=== PATIENT | female | born 1950 | race Caucasian/White ===

== ENCOUNTER 2019-02-13 14:51 | Inpatient (IN) | payer MEDICARE, OTHER ==
[~2019-02-13] VITALS: Ht 177.8 cm; Wt 103.2 kg
[~2019-02-13 14:51] MED LIST: ACET-784 PO; AUD NEB; BISA10SU11 PR; DSS100 PO; HEPA500018 SQ; HYDR2I IV; INSNOV SQ; IPRNEB NEB; LR1000 IV; METO25 PO; MOM30 PO; ONDA4 IVP; PANT40TA25 IVP; VANC1IV IV; ZOLP5 PO
[2019-02-13] MEDS ORDERED: SODIUM CHLORIDE 0.9% 1,000 ML IV ONE ×4 (15:12→17:15)
[2019-02-13] MEDS ORDERED: ACETAMINOPHEN 1000 MG/ISO-OSM 100 ML IV ONE ×2 (15:15→20:00)
[2019-02-13 15:35] LABS: BASOPHILS % (AUTO) 0.6 % (0.0-2.0); EOSINOPHILS % (AUTO) 0 % (1.0-6.0); HEMOGLOBIN 15.7 g/dL (12.0-16.0); LYMPHOCYTES # (AUTO) 2.7 K/uL (1.0-4.8); LYMPHOCYTES % (AUTO) 14.2 % (22.0-44.0); MEAN CORPUSCULAR HEMOGLOBIN 29.9 pg (26.0-34.0); MEAN CORPUSCULAR HGB CONC 32.8 G/dL (31.0-37.0); MEAN CORPUSCULAR VOLUME 91 fL (80-100); MONOCYTES # (AUTO) 1.5 K/uL (0.1-1.0); MONOCYTES % (AUTO) 7.8 % (2.0-9.0); NEUTROPHILS # (AUTO) 14.7 K/uL (1.8-7.7); NEUTROPHILS % (AUTO) 77.4 % (40.0-70.0); PLATELET COUNT (AUTO) 234 K/uL (150-450); RED BLOOD CELL COUNT(AUTO) 5.26 MIL/uL (4.00-5.20); RED CELL DISTRIBUTION WIDTH 13.9 % (11.5-14.5)
[2019-02-13 15:46] LABS: APPEARANCE,URINE CLOUDY (CLEAR); BILIRUBIN,URINE NEGATIVE (NEGATIVE); GLUCOSE, URINE (UA) 100 mg/dL (NEGATIVE); KETONES,URINE 15 mg/dL (NEGATIVE); LEUKOCYTE ESTERASE ,URINE MODERATE (NEGATIVE); NITRATE,URINE NEGATIVE (NEGATIVE); OCCULT BLOOD,URINE MODERATE (NEGATIVE); PH,URINE 5.5 (5.0-8.0); PROTEIN,URINE SEE CONFIRM (NEGATIVE)
[2019-02-13 15:48] LABS: INR 1.1 (0.9-1.1); PROTHROMBIN TIME 11.6 SEC (9.4-11.6)
[2019-02-13 15:58] LABS: LACTIC ACID 3.8 mmol/L (0.4-2.0)
[2019-02-13] MEDS ORDERED: CefTRIAXone 1 GM/DEXTROSE 50 ML IV ONE (16:00)
[2019-02-13 16:01] LABS: BACTERIA,URINE Many /HPF (None Seen); SQUAMOUS EPITHELIAL CELL,UR Few /LPF (None Seen); SULFOSALICYLIC ACID,URINE 3+ (Negative); WBC,URINE 26-50 /HPF (0-5)
[2019-02-13 16:07] LABS: ALANINE AMINOTRANSFERASE 20 U/L (12-78); ALBUMIN 3.1 g/dL (3.4-5.0); ALKALINE PHOSPHATASE 79 U/L (46-116); ANION GAP 13 mmol/L (8-16); ASPARTATE AMINOTRANSFERASE 34 U/L (15-37); BILIRUBIN,TOTAL 1.9 mg/dL (0.1-1.0); CALCIUM, TOTAL 8.8 mg/dL (8.8-10.5); CARBON DIOXIDE 26 mmol/L (22-29); CHLORIDE 89 mmol/L (98-107); CREATINE KINASE, TOTAL ONLY 122 U/L (26-192); CREATININE 1.96 mg/dL (0.60-1.30); GLOMERULAR FILTR. RATE CALC 26 mL/min (>60); GLUCOSE,RANDOM 315 mg/dL (70-110); SODIUM SERUM 128 mmol/L (136-145); TOTAL PROTEIN, SERUM 7.7 g/dL (6.4-8.2); UREA NITROGEN, BLOOD 19 mg/dL (7-18)
[2019-02-13 16:10] LABS: POTASSIUM 2.9 mmol/L (3.5-5.1)
[2019-02-13] MEDS ORDERED: POTASSIUM CHL 10 MEQ/WATER 50 ML IV ONE (16:15)
[2019-02-13] MEDS ORDERED: ONDANSETRON HCL 4 MG/2 ML VIAL IVP PRN (16:30)
[2019-02-13] MEDS ORDERED: HYDROCODONE/ACETAMINOPHEN 5-325 MG TABLET PO PRN (16:30)
[2019-02-13] MEDS ORDERED: ZOLPIDEM TARTRATE 5 MG TABLET PO PRN (16:30)
[2019-02-13] MEDS ORDERED: MORPHINE SULFATE 2 MG/ML SYRINGE IVP PRN (16:30)
[2019-02-13] MEDS ORDERED: BISACODYL 10 MG RECTAL RECTAL SUPPOSITORY PR PRN (16:30)
[2019-02-13] MEDS ORDERED: MAGNESIUM HYDROXIDE SUSPENSION 30 ML UDCUP PO PRN (16:30)
[2019-02-13 16:59] LABS: INFLUENZA TYPE A NEGATIVE FOR TYPE A (NEGATIVE); INFLUENZA TYPE B NEGATIVE FOR TYPE B (NEGATIVE)
[2019-02-13] MEDS: POTASSIUM CHL 10 MEQ/WATER 50 ML IV SCH ×4 (17:36→21:36)
[2019-02-13 19:08] LABS: CALCIUM, TOTAL 8.3 mg/dL (8.8-10.5); CREATININE 1.54 mg/dL (0.60-1.30); POTASSIUM 3.1 mmol/L (3.5-5.1)
[2019-02-13 19:15] LABS: ALBUMIN 2.9 g/dL (3.4-5.0); BILIRUBIN,TOTAL 1.6 mg/dL (0.1-1.0); MAGNESIUM 1.7 mg/dL (1.80-2.40); PHOSPHORUS 2.2 mg/dL (2.5-4.9); TOTAL PROTEIN, SERUM 7.4 g/dL (6.4-8.2)
[2019-02-13 19:34] LABS: GLUCOSE,POINT OF CARE 317 MG/DL (70-110)
[2019-02-13] MEDS ORDERED: *CLINICAL-LEVOFLOXACIN IVPB DOSING CLINICAL ONE (20:45)
[2019-02-13 21:00] VITALS: BP 122/72
[2019-02-13] MEDS: DOCUSATE SODIUM 100 MG CAPSULE PO SCH (21:00)
[2019-02-13] MEDS ORDERED: METOPROLOL TARTRATE 25 MG TABLET PO SCH (21:00)
[2019-02-13] MEDS ORDERED: ACETAMINOPHEN 650 MG RECTAL SUPPOSITORY PR PRN (21:30)
[2019-02-13] MEDS ORDERED: DEXTROSE 50%-WATER 25 GM/50 ML SYRINGE IVP PRN (22:15)
[2019-02-13] MEDS: LEVOFLOXACIN 750 MG/D5% WATER 150 ML IV SCH (22:52)
[2019-02-13] MEDS: INSULIN LISPRO 100 UNITS/ML SQ PRN (23:30)
[2019-02-13] MEDS: HEPARIN SODIUM,PORCINE 5,000 UNITS/ML VIAL SQ SCH (23:36)
[2019-02-13 23:54] LABS: GLUCOSE,POINT OF CARE 335 MG/DL (70-110)
[2019-02-14] VITALS (9 sets, daily range): BP systolic 106–140; BP diastolic 51–86
[2019-02-14 01:54] LABS: CREATININE,URINE RANDOM 113.5 mg/dL (30.0-125.0)
[2019-02-14] MEDS: INSULIN LISPRO 100 UNITS/ML SQ PRN ×2 (06:14→19:54)
[2019-02-14 06:18] LABS: BASOPHILS % (AUTO) 0.5 % (0.0-2.0); EOSINOPHILS % (AUTO) 0.1 % (1.0-6.0); HEMATOCRIT 45.3 % (36-46); LYMPHOCYTES # (AUTO) 3.5 K/uL (1.0-4.8); LYMPHOCYTES % (AUTO) 18.9 % (22.0-44.0); MEAN CORPUSCULAR HEMOGLOBIN 30.4 pg (26.0-34.0); MEAN CORPUSCULAR HGB CONC 33.2 G/dL (31.0-37.0); MEAN CORPUSCULAR VOLUME 92 fL (80-100); MONOCYTES # (AUTO) 1.8 K/uL (0.1-1.0); MONOCYTES % (AUTO) 9.6 % (2.0-9.0); NEUTROPHILS # (AUTO) 13.2 K/uL (1.8-7.7); NEUTROPHILS % (AUTO) 70.9 % (40.0-70.0); PLATELET COUNT (AUTO) 169 K/uL (150-450); RED BLOOD CELL COUNT(AUTO) 4.93 MIL/uL (4.00-5.20); RED CELL DISTRIBUTION WIDTH 14.2 % (11.5-14.5)
[2019-02-14 06:32] LABS: ALBUMIN 2.7 g/dL (3.4-5.0); BILIRUBIN,TOTAL 0.9 mg/dL (0.1-1.0); CALCIUM, TOTAL 7.9 mg/dL (8.8-10.5); CREATININE 1.44 mg/dL (0.60-1.30); TOTAL PROTEIN, SERUM 6.9 g/dL (6.4-8.2)
[2019-02-14 07:04] LABS: GLUCOSE,POINT OF CARE 298 MG/DL (70-110)
[2019-02-14] MEDS ORDERED: DIGOXIN 250 MCG/ML 2 ML AMP IVP ONE (07:45)
[2019-02-14] MEDS: HEPARIN SODIUM,PORCINE 5,000 UNITS/ML VIAL SQ SCH ×2 (08:24→16:29)
[2019-02-14 08:45] LABS: MAGNESIUM 1.8 mg/dL (1.80-2.40)
[2019-02-14] MEDS: APIXABAN 5 MG TABLET PO SCH ×2 (09:08→21:14)
[2019-02-14] MEDS: PANTOPRAZOLE SODIUM 40 MG DR TABLET PO SCH (09:08)
[2019-02-14] MEDS: DOCUSATE SODIUM 100 MG CAPSULE PO SCH ×2 (09:08→21:14)
[2019-02-14] MEDS: ACETAMINOPHEN 325 MG TABLET PO PRN (09:09)
[2019-02-14] MEDS ORDERED: MAGNESIUM OXIDE 400 MG TABLET PO PRN (09:30)
[2019-02-14] MEDS ORDERED: MAGNESIUM SULFATE 2 GM/WATER 50 ML IV PRN (09:30)
[2019-02-14] MEDS ORDERED: POTASSIUM CHLORIDE 20 MEQ ER TABLET PO PRN (09:30)
[2019-02-14] MEDS ORDERED: MAGNESIUM SULFATE 4 GM/WATER 100 ML IV PRN (09:30)
[2019-02-14] MEDS: SODIUM CHLORIDE 0.9% 1,000 ML IV SCH ×2 (10:36→19:42)
[2019-02-14] MEDS: POTASSIUM CHL 10 MEQ/WATER 50 ML IV PRN ×4 (10:40→14:20)
[2019-02-14] MEDS ORDERED: SODIUM CHLORIDE 0.9% 250 ML IV ONE (11:36)
[2019-02-14] MEDS: DIGOXIN 250 MCG/ML 2 ML AMP IVP ONE ×2 (15:15→15:26)
[2019-02-14] MEDS ORDERED: AMIODARONE HCL 150 MG in DEXTROSE 5%-WATER 97 ML IV ONE (15:35)
[2019-02-14] MEDS ORDERED: AMIODARONE HCL 360 MG in DEXTROSE 5%-WATER 242.8 ML IV ONE (15:45)
[2019-02-14] MEDS: CefTRIAXone 1 GM/DEXTROSE 50 ML IV SCH (16:21)
[2019-02-14] MEDS: METOPROLOL TARTRATE 25 MG TABLET PO SCH (16:29)
[2019-02-14] MEDS ORDERED: AMIODARONE HCL 540 MG in DEXTROSE 5%-WATER 239.2 ML IV ONE (18:45)
[2019-02-14 20:05] LABS: GLUCOSE,POINT OF CARE 269 MG/DL (70-110)
[2019-02-14] MEDS: INSULIN GLARGINE,HUM.REC.ANLOG 100 UNITS/ML SQ SCH (21:42)
[2019-02-14] MEDS: LEVOFLOXACIN 750 MG/D5% WATER 150 ML IV SCH (21:43)
[2019-02-15] VITALS: BP 134/81
[2019-02-15] MEDS: INSULIN LISPRO 100 UNITS/ML SQ PRN ×4 (00:27→22:07)
[2019-02-15] MEDS: HEPARIN SODIUM,PORCINE 5,000 UNITS/ML VIAL SQ SCH ×3 (00:31→16:00)
[2019-02-15] MEDS: METOPROLOL TARTRATE 25 MG TABLET PO SCH ×4 (00:31→17:32)
[2019-02-15 04:00] VITALS: BP 142/93
[2019-02-15 05:19] LABS: BASOPHILS % (AUTO) 0.4 % (0.0-2.0); EOSINOPHILS % (AUTO) 0.7 % (1.0-6.0); HEMATOCRIT 38.6 % (36-46); HEMOGLOBIN 12.7 g/dL (12.0-16.0); LYMPHOCYTES # (AUTO) 2.4 K/uL (1.0-4.8); LYMPHOCYTES % (AUTO) 21.3 % (22.0-44.0); MEAN CORPUSCULAR VOLUME 91 fL (80-100); MONOCYTES # (AUTO) 0.9 K/uL (0.1-1.0); MONOCYTES % (AUTO) 8.3 % (2.0-9.0); NEUTROPHILS # (AUTO) 7.7 K/uL (1.8-7.7); NEUTROPHILS % (AUTO) 69.3 % (40.0-70.0); PLATELET COUNT (AUTO) 135 K/uL (150-450); RED BLOOD CELL COUNT(AUTO) 4.24 MIL/uL (4.00-5.20); RED CELL DISTRIBUTION WIDTH 13.8 % (11.5-14.5)
[2019-02-15 05:29] LABS: ALBUMIN 2.4 g/dL (3.4-5.0); BILIRUBIN,TOTAL 0.6 mg/dL (0.1-1.0); CALCIUM, TOTAL 7.9 mg/dL (8.8-10.5); CREATININE 0.97 mg/dL (0.60-1.30); MAGNESIUM 1.7 mg/dL (1.80-2.40); POTASSIUM 3.1 mmol/L (3.5-5.1); TOTAL PROTEIN, SERUM 5.6 g/dL (6.4-8.2)
[2019-02-15] MEDS: SODIUM CHLORIDE 0.9% 1,000 ML IV SCH (06:06)
[2019-02-15 08:00] VITALS: BP 134/69
[2019-02-15] MEDS: PANTOPRAZOLE SODIUM 40 MG DR TABLET PO SCH (08:01)
[2019-02-15] MEDS: DIGOXIN 250 MCG/ML 2 ML AMP IVP SCH ×2 (08:01→12:13)
[2019-02-15] MEDS: APIXABAN 5 MG TABLET PO SCH ×2 (08:01→21:20)
[2019-02-15] MEDS: DOCUSATE SODIUM 100 MG CAPSULE PO SCH ×2 (08:01→21:00)
[2019-02-15] MEDS: POTASSIUM CHL 10 MEQ/WATER 50 ML IV PRN ×3 (08:51→11:21)
[2019-02-15 09:45] LABS: GLUCOSE,POINT OF CARE 191 MG/DL (70-110)
[2019-02-15 09:45] LABS: GLUCOSE,POINT OF CARE 262 MG/DL (70-110)
[2019-02-15 09:45] LABS: GLUCOSE,POINT OF CARE 241 MG/DL (70-110)
[2019-02-15] MEDS: ACETAMINOPHEN 325 MG TABLET PO PRN (11:44)
[2019-02-15 12:00] VITALS: BP 121/72
[2019-02-15] MEDS ORDERED: SODIUM CHLORIDE 0.9% 250 ML IV ONE (12:20)
[2019-02-15] MEDS ORDERED: SODIUM CHLORIDE 0.9% 1,000 ML IV ONE (13:30)
[2019-02-15] MEDS ORDERED: BARIUM SULFATE 0.1% SUSPENSION 450 ML BOTTLE ONE (14:04)
[2019-02-15] MEDS ORDERED: SODIUM CHLORIDE 0.9% 100 ML ONE (14:04)
[2019-02-15] MEDS ORDERED: IOVERSOL 350 MG/ML 150 ML VIAL ONE (14:04)
[2019-02-15] MEDS: AMIODARONE HCL 750 MG in DEXTROSE 5%-WATER 485 ML IV SCH (15:40)
[2019-02-15 16:00] VITALS: BP 135/73
[2019-02-15] MEDS: CefTRIAXone 1 GM/DEXTROSE 50 ML IV SCH (16:00)
[2019-02-15 17:35] LABS: GLUCOSE,POINT OF CARE 219 MG/DL (70-110)
[2019-02-15 17:35] LABS: GLUCOSE,POINT OF CARE 188 MG/DL (70-110)
[2019-02-15 20:00] VITALS: BP 172/73
[2019-02-15] MEDS: INSULIN GLARGINE,HUM.REC.ANLOG 100 UNITS/ML SQ SCH (21:10)
[2019-02-15] MEDS: LEVOFLOXACIN 750 MG/D5% WATER 150 ML IV SCH (22:08)
[2019-02-15 23:39] LABS: GLUCOSE,POINT OF CARE 211 MG/DL (70-110)
[2019-02-16] VITALS (8 sets, daily range): BP systolic 95–147; BP diastolic 53–70
[2019-02-16] MEDS: HEPARIN SODIUM,PORCINE 5,000 UNITS/ML VIAL SQ SCH ×3 (00:33→15:39)
[2019-02-16] MEDS: METOPROLOL TARTRATE 25 MG TABLET PO SCH ×4 (00:33→18:04)
[2019-02-16 05:24] LABS: BASOPHILS % (AUTO) 0.7 % (0.0-2.0); EOSINOPHILS % (AUTO) 2.2 % (1.0-6.0); HEMATOCRIT 36.3 % (36-46); HEMOGLOBIN 12.1 g/dL (12.0-16.0); LYMPHOCYTES % (AUTO) 22.3 % (22.0-44.0); MEAN CORPUSCULAR HEMOGLOBIN 30.6 pg (26.0-34.0); MEAN CORPUSCULAR HGB CONC 33.4 G/dL (31.0-37.0); MEAN CORPUSCULAR VOLUME 92 fL (80-100); MONOCYTES # (AUTO) 0.8 K/uL (0.1-1.0); MONOCYTES % (AUTO) 8.2 % (2.0-9.0); NEUTROPHILS # (AUTO) 6.1 K/uL (1.8-7.7); NEUTROPHILS % (AUTO) 66.6 % (40.0-70.0); PLATELET COUNT (AUTO) 126 K/uL (150-450); RED BLOOD CELL COUNT(AUTO) 3.97 MIL/uL (4.00-5.20); RED CELL DISTRIBUTION WIDTH 13.8 % (11.5-14.5)
[2019-02-16] MEDS: INSULIN LISPRO 100 UNITS/ML SQ PRN ×4 (06:06→21:05)
[2019-02-16 07:05] LABS: GLUCOSE,POINT OF CARE 157 MG/DL (70-110)
[2019-02-16 07:10] LABS: ALANINE AMINOTRANSFERASE 17 U/L (12-78); ALBUMIN 2.3 g/dL (3.4-5.0); ALKALINE PHOSPHATASE 56 U/L (46-116); ANION GAP 11 mmol/L (8-16); ASPARTATE AMINOTRANSFERASE 30 U/L (15-37); BILIRUBIN,TOTAL 0.5 mg/dL (0.1-1.0); CALCIUM, TOTAL 8.4 mg/dL (8.8-10.5); CARBON DIOXIDE 23 mmol/L (22-29); CHLORIDE 99 mmol/L (98-107); CREATININE 0.89 mg/dL (0.60-1.30); GLOMERULAR FILTR. RATE CALC > 60 mL/min (>60); GLUCOSE,RANDOM 149 mg/dL (70-110); POTASSIUM 3.3 mmol/L (3.5-5.1); SODIUM SERUM 133 mmol/L (136-145); TOTAL PROTEIN, SERUM 6.1 g/dL (6.4-8.2); UREA NITROGEN, BLOOD 11 mg/dL (7-18)
[2019-02-16] MEDS: DOCUSATE SODIUM 100 MG CAPSULE PO SCH ×2 (09:00→20:50)
[2019-02-16] MEDS: APIXABAN 5 MG TABLET PO SCH ×2 (09:01→20:50)
[2019-02-16] MEDS: PANTOPRAZOLE SODIUM 40 MG DR TABLET PO SCH (09:01)
[2019-02-16] MEDS ORDERED: SODIUM CHLORIDE 0.9% 500 ML IV ONE (10:05)
[2019-02-16] MEDS: POTASSIUM CHL 10 MEQ/WATER 50 ML IV PRN ×6 (10:07→22:13)
[2019-02-16 12:02] LABS: POTASSIUM,URINE RANDOM 21 mmol/L (12-75); SODIUM,URINE RANDOM 150 mmol/l (20-110)
[2019-02-16 12:09] LABS: OSMOLALITY,URINE 589 mOS/kg (50-1200)
[2019-02-16 14:39] LABS: GLUCOSE,POINT OF CARE 163 MG/DL (70-110)
[2019-02-16] MEDS: AMIODARONE HCL 750 MG in DEXTROSE 5%-WATER 485 ML IV SCH (15:37)
[2019-02-16] MEDS: CeFAZolin 1 GM/DEXTROSE 50 ML IV SCH (15:38)
[2019-02-16 18:29] LABS: GLUCOSE,POINT OF CARE 201 MG/DL (70-110)
[2019-02-16] MEDS ORDERED: SODIUM CHLORIDE 0.9% 250 ML IV ONE ×2 (19:26→22:26)
[2019-02-16] MEDS: AMIODARONE HCL 200 MG TABLET PO SCH (20:50)
[2019-02-16] MEDS: ACETAMINOPHEN 325 MG TABLET PO PRN (20:51)
[2019-02-16] MEDS: INSULIN GLARGINE,HUM.REC.ANLOG 100 UNITS/ML SQ SCH (21:04)
[2019-02-17] VITALS (7 sets, daily range): BP systolic 121–146; BP diastolic 54–70
[2019-02-17] MEDS: METOPROLOL TARTRATE 25 MG TABLET PO SCH ×4 (00:35→17:52)
[2019-02-17] MEDS: HEPARIN SODIUM,PORCINE 5,000 UNITS/ML VIAL SQ SCH ×3 (00:35→17:10)
[2019-02-17] MEDS: CeFAZolin 1 GM/DEXTROSE 50 ML IV SCH ×3 (00:35→15:36)
[2019-02-17] MEDS ORDERED: SODIUM CHLORIDE 0.9% 250 ML IV ONE (03:02)
[2019-02-17 05:54] LABS: BASOPHILS % (AUTO) 0.5 % (0.0-2.0); HEMATOCRIT 39.1 % (36-46); LYMPHOCYTES # (AUTO) 1.9 K/uL (1.0-4.8); LYMPHOCYTES % (AUTO) 23.4 % (22.0-44.0); MEAN CORPUSCULAR HEMOGLOBIN 30.4 pg (26.0-34.0); MEAN CORPUSCULAR HGB CONC 33.4 G/dL (31.0-37.0); MEAN CORPUSCULAR VOLUME 91 fL (80-100); MONOCYTES # (AUTO) 0.6 K/uL (0.1-1.0); MONOCYTES % (AUTO) 7.4 % (2.0-9.0); NEUTROPHILS # (AUTO) 5.3 K/uL (1.8-7.7); NEUTROPHILS % (AUTO) 66.7 % (40.0-70.0); PLATELET COUNT (AUTO) 135 K/uL (150-450); RED CELL DISTRIBUTION WIDTH 14.1 % (11.5-14.5)
[2019-02-17] MEDS: INSULIN LISPRO 100 UNITS/ML SQ PRN ×3 (05:58→21:31)
[2019-02-17 06:01] LABS: ANION GAP 8 mmol/L (8-16); CALCIUM, TOTAL 8.4 mg/dL (8.8-10.5); CARBON DIOXIDE 24 mmol/L (22-29); CHLORIDE 99 mmol/L (98-107); CREATININE 0.79 mg/dL (0.60-1.30); GLOMERULAR FILTR. RATE CALC > 60 mL/min (>60); GLUCOSE,RANDOM 164 mg/dL (70-110); PHOSPHORUS 3.3 mg/dL (2.5-4.9); POTASSIUM 3.9 mmol/L (3.5-5.1); SODIUM SERUM 131 mmol/L (136-145); UREA NITROGEN, BLOOD 8 mg/dL (7-18)
[2019-02-17 07:05] LABS: GLUCOSE,POINT OF CARE 180 MG/DL (70-110)
[2019-02-17 07:05] LABS: GLUCOSE,POINT OF CARE 213 MG/DL (70-110)
[2019-02-17] MEDS: MULTIVITAMINS WITH MINERALS, THERAPEUTIC TABLET PO SCH (07:55)
[2019-02-17] MEDS: AMIODARONE HCL 200 MG TABLET PO SCH ×2 (07:55→20:14)
[2019-02-17] MEDS: PANTOPRAZOLE SODIUM 40 MG DR TABLET PO SCH (07:55)
[2019-02-17] MEDS: DOCUSATE SODIUM 100 MG CAPSULE PO SCH ×2 (07:55→20:14)
[2019-02-17] MEDS: APIXABAN 5 MG TABLET PO SCH ×2 (08:01→21:30)
[2019-02-17] MEDS ORDERED: FUROSEMIDE 20 MG/2 ML VIAL IVP ONE (10:15)
[2019-02-17 17:48] LABS: ANION GAP 10 mmol/L (8-16); CALCIUM, TOTAL 8.4 mg/dL (8.8-10.5); CARBON DIOXIDE 26 mmol/L (22-29); CHLORIDE 98 mmol/L (98-107); CREATININE 0.89 mg/dL (0.60-1.30); GLOMERULAR FILTR. RATE CALC > 60 mL/min (>60); GLUCOSE,RANDOM 194 mg/dL (70-110); POTASSIUM 3.2 mmol/L (3.5-5.1); SODIUM SERUM 134 mmol/L (136-145); UREA NITROGEN, BLOOD 8 mg/dL (7-18)
[2019-02-17] MEDS ORDERED: POTASSIUM CHLORIDE 10% 40 MEQ/30 ML LIQUID UDCUP PO ONE (18:00)
[2019-02-17] MEDS: INSULIN GLARGINE,HUM.REC.ANLOG 100 UNITS/ML SQ SCH (21:31)
[2019-02-17] MEDS ORDERED: SODIUM CHLORIDE 0.9% 100 ML ONE (22:18)
[2019-02-18] VITALS (7 sets, daily range): BP systolic 116–137; BP diastolic 58–73
[2019-02-18] MEDS: METOPROLOL TARTRATE 25 MG TABLET PO SCH ×4 (00:25→18:12)
[2019-02-18] MEDS: HEPARIN SODIUM,PORCINE 5,000 UNITS/ML VIAL SQ SCH ×3 (00:25→17:08)
[2019-02-18] MEDS: CeFAZolin 1 GM/DEXTROSE 50 ML IV SCH ×3 (00:25→17:08)
[2019-02-18 00:45] LABS: GLUCOMETER DEV NAME(LOC) 5S.1; GLUCOSE,POINT OF CARE 212 MG/DL (70-110)
[2019-02-18 06:00] LABS: GLUCOMETER DEV NAME(LOC) 5N.1; GLUCOSE,POINT OF CARE 203 MG/DL (70-110)
[2019-02-18] MEDS: INSULIN LISPRO 100 UNITS/ML SQ PRN ×4 (06:17→22:02)
[2019-02-18 06:23] LABS: CALCIUM, TOTAL 9.1 mg/dL (8.8-10.5); CREATININE 0.93 mg/dL (0.60-1.30); POTASSIUM 3.8 mmol/L (3.5-5.1)
[2019-02-18 06:55] LABS: GLUCOMETER DEV NAME(LOC) 5N.1; GLUCOSE,POINT OF CARE 186 MG/DL (70-110)
[2019-02-18] MEDS: AMIODARONE HCL 200 MG TABLET PO SCH ×2 (08:00→21:58)
[2019-02-18] MEDS: APIXABAN 5 MG TABLET PO SCH ×2 (08:00→21:58)
[2019-02-18] MEDS: PANTOPRAZOLE SODIUM 40 MG DR TABLET PO SCH (08:00)
[2019-02-18] MEDS: MULTIVITAMINS WITH MINERALS, THERAPEUTIC TABLET PO SCH (08:01)
[2019-02-18] MEDS: DOCUSATE SODIUM 100 MG CAPSULE PO SCH ×2 (08:01→21:58)
[2019-02-18 19:40] LABS: GLUCOMETER DEV NAME(LOC) 5N.1; GLUCOSE,POINT OF CARE 174 MG/DL (70-110)
[2019-02-18 19:40] LABS: GLUCOMETER DEV NAME(LOC) 5S.1; GLUCOSE,POINT OF CARE 213 MG/DL (70-110)
[2019-02-18] MEDS: ACETAMINOPHEN 325 MG TABLET PO PRN (21:17)
[2019-02-18] MEDS: INSULIN GLARGINE,HUM.REC.ANLOG 100 UNITS/ML SQ SCH (22:01)
[2019-02-19 00:20] LABS: GLUCOMETER DEV NAME(LOC) 5N.1; GLUCOSE,POINT OF CARE 228 MG/DL (70-110)
[2019-02-19] MEDS: CeFAZolin 1 GM/DEXTROSE 50 ML IV SCH ×3 (00:37→16:43)
[2019-02-19] MEDS: METOPROLOL TARTRATE 25 MG TABLET PO SCH ×4 (00:37→17:21)
[2019-02-19] MEDS: HEPARIN SODIUM,PORCINE 5,000 UNITS/ML VIAL SQ SCH ×3 (00:38→16:43)
[2019-02-19 02:46] LABS: SODIUM,URINE RANDOM 19 mmol/l (20-110)
[2019-02-19 02:53] LABS: OSMOLALITY,URINE 162 mOS/kg (50-1200)
[2019-02-19 05:02] VITALS: BP 125/54
[2019-02-19 06:05] LABS: GLUCOMETER DEV NAME(LOC) 5S.1; GLUCOSE,POINT OF CARE 152 MG/DL (70-110)
[2019-02-19] MEDS: INSULIN LISPRO 100 UNITS/ML SQ PRN ×2 (06:22→11:56)
[2019-02-19 07:41] VITALS: BP 133/68
[2019-02-19] MEDS: AMIODARONE HCL 200 MG TABLET PO SCH (08:55)
[2019-02-19] MEDS: MULTIVITAMINS WITH MINERALS, THERAPEUTIC TABLET PO SCH (08:55)
[2019-02-19] MEDS: PANTOPRAZOLE SODIUM 40 MG DR TABLET PO SCH (08:55)
[2019-02-19] MEDS: DOCUSATE SODIUM 100 MG CAPSULE PO SCH (08:56)
[2019-02-19] MEDS: APIXABAN 5 MG TABLET PO SCH (08:56)
[2019-02-19 11:45] VITALS: BP 115/64
[2019-02-19] MEDS ORDERED: APIX5TAB PO (16:55)
[2019-02-19] MEDS ORDERED: AMIO200T44 PO (16:55)
[2019-02-19] MEDS ORDERED: CEFA1FRO IV (16:56)
[2019-02-19] MEDS ORDERED: INSLAN SQ (16:56)
[2019-02-19] MEDS ORDERED: METO25XL PO (16:57)
[2019-02-19] MEDS ORDERED: MULT-248 PO (16:58)
[2019-02-19] MEDS ORDERED: METO25 PO (16:58)
[2019-02-19] MEDS ORDERED: PANT40TA25 PO (16:59)
[2019-02-19] MEDS ORDERED: METOPROLOL SUCCINATE 25 MG ER TABLET PO SCH (21:00)
[2019-02-19 23:50] LABS: GLUCOMETER DEV NAME(LOC) 5S.1; GLUCOSE,POINT OF CARE 222 MG/DL (70-110)
== END 2019-02-19 17:55 | DRG 871 ==
LOC: EMS 14:51 → ICU 17:00 → 5S 02-17 16:15
PROVIDERS: ADMIT Internal Medicine; ATTEND Internal Medicine
DX: A41.9 Sepsis, unspecified organism (principal); G93.41 Metabolic encephalopathy; N39.0 Urinary tract infection, site not specified; N17.9 Acute kidney failure, unspecified; E87.2 Acidosis; E87.1 Hypo-osmolality and hyponatremia; K21.9 Gastro-esophageal reflux disease without esophagitis; I12.9 Hypertensive chronic kidney disease with stage 1 through stage 4 chronic kidney disease, or unspecified chronic kidney disease; I48.0 Paroxysmal atrial fibrillation; E87.6 Hypokalemia; J44.9 Chronic obstructive pulmonary disease, unspecified; N18.3 Chronic kidney disease, stage 3 (moderate); E11.22 Type 2 diabetes mellitus with diabetic chronic kidney disease; E11.65 Type 2 diabetes mellitus with hyperglycemia; E86.0 Dehydration; B96.20 Unspecified Escherichia coli [E. coli] as the cause of diseases classified elsewhere; R62.7 Adult failure to thrive; E11.21 Type 2 diabetes mellitus with diabetic nephropathy; E78.00 Pure hypercholesterolemia, unspecified; E78.5 Hyperlipidemia, unspecified; Z90.49 Acquired absence of other specified parts of digestive tract; Z87.891 Personal history of nicotine dependence; Z79.4 Long term (current) use of insulin; Z87.440 Personal history of urinary (tract) infections; Z86.718 Personal history of other venous thrombosis and embolism; Z86.73 Personal history of transient ischemic attack (TIA), and cerebral infarction without residual deficits; Z86.14 Personal history of Methicillin resistant Staphylococcus aureus infection; Z74.01 Bed confinement status
CPT/HCPCS: 51702; 70450; 74177; 76770; 82570; 83605; 83735; 83935; 84100; 84132; 84133; 84156; 84300; 84540; 87040; 87081; 87086; 87804; 93005; 93306; 94660; 97162; 97166; 97530; 97535; 99291; G0378; J0131; J0282; J0690; J0696; J1160; J1644; J1815; J1940; J1956; J2270; J3475; J3480; J7030; J7040; J7050; J7060